=== PATIENT | female | born 1975 | race African-American/Black ===

== ENCOUNTER 2020-02-21 12:53 | Emergency (ER) | payer OTHER ==
[~2020-02-21] VITALS: Ht 162.6 cm; Wt 75.1 kg
[2020-02-21] MEDS ORDERED: NEOMY/BACITR/POLYMYXIN OINT PACKET. TP ONE (13:30)
--- NOTE | 2020-02-21 13:33 | PHYS DOC ---
Past History Past Medical History: GERD, Other Additional Past Medical Histor: PTSD Past Surgical History: Cholecystectomy, , Other Additional Past Surgical Histo: SCAR REVISION ON ABD; ACHILLIES TENDON REPAIR Smoking: Non-smoker Alcohol Use: Occasionally General Adult EDM: Chief Complaint: LOWEREXTREMITY INJURY HPI: HPI: Patient is a 44-year-old female that presents with a superficial laceration to the right anterior lower extremity. A glass smear was propped up against a wall while she was moving, and she bumped into it in the mirror fell into the corner of the mirror cut her leg. The mirror did not shatter. She denies injury to any other part of the body. She currently complains of a throbbing pain around the cut. Her last tetanus shot was more than 5 years ago. Review of Systems: Review of Systems: Constitutional: Denies fever or chills Eyes: Denies redness or eye pain HENT: Denies nasal congestion or sore throat Respiratory: Denies cough or shortness of breath Cardiovascular: Denies chest pain or palpitations GI: Denies abdominal pain, nausea, or vomiting : Denies dysuria or hematuria Musculoskeletal: Denies back pain or joint pain Integument: 2 cm superficial laceration to the anterior aspect of the right lower extremity Neurologic: Denies headache, focal weakness or sensory changes Complete systems were reviewed and found to be within normal limits, except as documented in this note. Current Medications: Current Meds: Current Medications Medications (Trade) Dose Ordered Sig/Luna Start Time Stop Time Status Last Admin Dose Admin Neomycin/ Polymyxin/ Bacitracin (Triple Antibiotic Ointment) 1 pkt 1X ONCE 02/21/20 13:30 02/21/20 13:31 DC Allergies: Allergies: Allergies Coded Allergies Type Severity Reaction Last Updated Verified No Known Drug Allergies 02/21/20 No Physical Exam: PE: Constitutional: Well developed, well nourished, no acute distress, non-toxic appearance HENT: Normocephalic, atraumatic Eyes: PERRL, EOMI, conjunctiva normal, no discharge Neck: Normal range of motion, no tenderness, supple Lungs & Thorax: No respiratory distress, equal chest rise and fall Abdomen: Soft, no tenderness Skin: 2 cm superficial linear skin avulsion on the right house, no wound gapping on exam, no redness or swelling around the lesion Back: No tenderness, no CVA tenderness Extremities: No tenderness, ROM intact, no edema Neurologic: Alert and oriented X 3, normal motor function, normal sensory function, no focal deficits noted Psychologic: Affect normal, judgment normal Current Patient Data: Vital Signs: Vital Signs Date Time Temp Pulse Resp B/P (MAP) Pulse Ox O2 Delivery O2 Flow Rate FiO2 02/21/20 12:53 98.2 68 18 131/88 (102) 97 Room Air EKG: EKG: [] Radiology/Procedures: Radiology/Procedures: [] Course & Med Decision Making: Course & Med Decision Making Patient presents with a superficial skin avulsion of the right house after a mirror fell off the wall and cut her. The wound is too superficial to suture or glue, so wound was cleaned out and Neosporin and Band-Aid was applied. Tetanus was updated. Patient stable for discharge with outpatient follow-up with PCP. Discussed findings and plan with patient, who acknowledges understanding and agreement. [place] Disclaimer: Herman Disclaimer: This electronic medical record was generated, in whole or in part, using a voice recognition dictation system. Departure Departure: Impression: Primary Impression: Skin avulsion Disposition: 01 DC HOME SELF CARE/HOMELESS Condition: STABLE Referrals: PCP,NO (PCP) Patient Instructions: Abrasion, Dyck-cr-Cyty Additional Instructions: Do not soak your wound. You may shower. Clean wound daily with soap and water. Change dressing 2 times daily. Use over the counter antibiotic ointment with each dressing change. MARILYN TUCKER DO Feb 21, 2020 13:33
[2020-02-21] MEDS ORDERED: IBUPROFEN 600 MG TABLET. PO ONE (14:00)
[2020-02-21] MEDS ORDERED: DIPH,PERTUSS(ACELL),TET VAC/PF 0.5 ML SYRINGE. VAX IM ONE (14:00)
[2020-02-21 14:40] VITALS: BP 137/92
== END 2020-02-21 14:40 | disposition home or self-care (01) ==
LOC: ER 12:53
DX: S81.811A Laceration without foreign body, right lower leg, initial encounter (principal); K21.9 Gastro-esophageal reflux disease without esophagitis; F43.10 Post-traumatic stress disorder, unspecified; W25.XXXA Contact with sharp glass, initial encounter; Y93.89 Activity, other specified; Y92.89 Other specified places as the place of occurrence of the external cause; Y99.8 Other external cause status
CPT/HCPCS: 90471; 90715; 99283